=== PATIENT | female | born 1990 | race African-American/Black ===

== ENCOUNTER 2024-02-07 18:18 | Emergency (ER) | payer SELFPAY ==
[~2024-02-07] VITALS: Ht 175.3 cm; Wt 77.0 kg
[2024-02-07 18:33] VITALS: TEMP 98.2; O2SAT 100
[2024-02-07] MEDS: KETOROLAC 30MG/ML VIAL IM ONE (20:57)
[2024-02-07] MEDS: CYCLOBENZAPRINE 10MG TABLET PO ONE (20:58)
[2024-02-07] MEDS: ACETAMINOPHEN 325MG TABLET PO ONE (21:08)
[2024-02-07] MEDS: CYCLOBENZAPRINE 10MG TABLET PO NR (23:07)
[2024-02-07] MEDS: KETOROLAC 30MG/ML VIAL IM NR (23:08)
[2024-02-07 23:23] VITALS: BP 135/81; PULSE 75; RESP 18
== END 2024-02-07 23:22 | disposition home or self-care (01) ==
LOC: ER 18:18
DX: O9A.212 Injury, poisoning and certain other consequences of external causes complicating pregnancy, second trimester (principal); Z3A.14 14 weeks gestation of pregnancy; Z98.890 Other specified postprocedural states
CPT/HCPCS: 73130; 76801; 81025; 99284

== ENCOUNTER 2024-05-12 00:25 | Emergency (ER) | payer MEDICAID ==
[~2024-05-12] VITALS: Ht 170.2 cm; Wt 85.9 kg
[2024-05-12 00:41] VITALS: TEMP 98.5; O2SAT 100
[2024-05-12 01:53] VITALS: BP 127/87; PULSE 64; RESP 18; O2SAT 100
[2024-05-14 05:10] LABS: CHLAMYDIA TRACHOMATIS NAA Negative (Negative); NEISSERIA GONORRHOEAE NAA Negative (Negative)
== END 2024-05-12 01:53 | disposition home or self-care (01) ==
LOC: ER 00:34
DX: Z20.2 Contact with and (suspected) exposure to infections with a predominantly sexual mode of transmission (principal)
CPT/HCPCS: 87491; 87591; 99281; 99283